=== PATIENT | female | born 1960 | race Caucasian/White ===

== ENCOUNTER 2019-03-03 21:56 | Emergency (ER) | payer BC ==
[2019-03-03] MEDS ORDERED: DIPH,PERTUS(ACELL)TETVAC-LF 0.5 ML VIAL IM ONE (22:09)
[2019-03-03] MEDS ORDERED: LIDOCAINE 1% INJ 10MG/ML (20 ML MDV) SQ ONE (22:09)
[2019-03-03 22:35] VITALS: BP 133/73; PULSE 73; RESP 16; TEMP 98.2
[2019-03-03] MEDS ORDERED: CEPHALEXIN 500MG STARTER PACK 4 CAP BTL PO STA (22:53)
[2019-03-03] MEDS ORDERED: LEVOFLOXACIN 750 MG TAB PO STA (22:55)
--- NOTE | 2019-03-03 22:56 | ED ---
Wound/Laceration HPI - General Chief Complaint: Wound/Laceration Stated Complaint: Fish hook in finger Time Seen by Provider: 03/03/19 22:09 Source: patient Mode of arrival: ambulatory Limitations: no limitations - History of Present Illness Initial Comments: 59-year-old female patient presents to the emergency department today for evaluation of fishhook injury to the right index finger. Patient states that it just prior to arrival she was fishing when she accidentally got stuck in her hand. Patient did try to remove it however was unsuccessful. She denies any significant pain. She is unsure when her last tetanus vaccine was administered. She denies taking anything for pain. She denies any other injuries or concerns. Patient denies any headache, neck pain, back pain, chest pain, shortness of breath, dizziness, weakness, abdominal pain, nausea, vomiting, or difficulties with bowel movements or urination. - Related Data Previous Rx's Medication Instructions Recorded Levofloxacin [Levaquin] 500 mg PO DAILY 3 Days #3 tab 03/03/19 Allergies Allergy/AdvReac Type Severity Reaction Status Date / Time No Known Allergies Allergy Verified 03/03/19 22:08 Review of Systems ROS Statement: Those systems with pertinent positive or pertinent negative responses have been documented in the HPI. ROS Other: All systems not noted in ROS Statement are negative. Past Medical History Past Medical History: Myocardial Infarction ([place]) History of Any Multi-Drug Resistant Organisms: None Reported Additional Past Surgical History / Comment(s): neck surgery Past Psychological History: No Psychological Hx Reported Smoking Status: Current every day smoker Past Alcohol Use History: None Reported Past Drug Use History: None Reported General Exam Limitations: no limitations General appearance: alert, in no apparent distress, other (This is a well- developed, well-nourished adult female patient in no acute distress. Vital signs upon presentation are temperature 97.9F, pulse 67, respirations 18, blood pressure 151/84, pulse ox 95% on room air.) Respiratory exam: Present: normal lung sounds bilaterally. Absent: respiratory distress, wheezes, rales, rhonchi, stridor Cardiovascular Exam: Present: regular rate, normal rhythm, normal heart sounds. Absent: systolic murmur, diastolic murmur, rubs, gallop, clicks Extremities exam: Present: full ROM, normal capillary refill, other (There is physician embedded into the palmar surface of the right distal index finger. No bleeding. Skin is pink, warm, dry. Cap refills less than 3 seconds. Radial pulses 2+ and equal bilaterally.). Absent: normal inspection, tenderness, pedal edema, joint swelling, calf tenderness Neurological exam: Present: alert, oriented X3, CN II-XII intact Psychiatric exam: Present: normal affect, normal mood Skin exam: Present: warm, dry, intact, normal color. Absent: rash Course Vital Signs 03/03/19 03/03/19 22:05 22:31 Temperature 97.9 F 98.2 F Pulse Rate 67 73 Respiratory 18 16 Rate Blood Pressure 151/84 133/73 O2 Sat by Pulse 95 96 Oximetry Procedures - Forgein Body Removal Soft Tissue Consent Obtained: verbal consent Site: hand (Right index finger) Anesthetic Used: lidocaine 1% Amount (mLs): 1 Foreign Body Suspected: Fish Hook Foreign Body Removed: yes Foreign Body Removal Technique: Other Patient Tolerated Procedure: well, no complications Medical Decision Making - Medical Decision Making 59-year-old female patient presents to the emergency department today for evaluation of facial injury to the right index finger. Physical examination did reveal a fishhook in the palmar aspect of the distal right index finger. This was removed easily by disengaging the van and retracting the hook. Patient tolerated procedure well. Area was cleansed. Patient will be started on levaquin for prophylaxis. She'll be discharged home to follow-up with her primary care physician for recheck in 1-2 days. Return parameters were discussed in detail. She verbalizes understanding and agrees with this plan. Disposition Clinical Impression: Fish hook injury of finger Disposition: HOME SELF-CARE Condition: Good Instructions (If sedation given, give patient instructions): Puncture Wound (ED) Additional Instructions: Keep area clean and dry. Complete antibiotic prescription in full. Follow-up with your primary care physician for recheck in 1-2 days. Return to the emergency department immediately for any new, worsening, or concerning symptoms. Prescriptions: Levofloxacin [Levaquin] 500 mg PO DAILY 3 Days #3 tab Is patient prescribed a controlled substance at d/c from ED?: No Referrals: Nonstaff,Physician [Primary Care Provider] - 1-2 days Time of Disposition: 22:55
== END 2019-03-03 23:10 | disposition home or self-care (01) ==
LOC: EC 21:56
DX: S69.91XA Unspecified injury of right wrist, hand and finger(s), initial encounter (principal); Z23 Encounter for immunization; I25.2 Old myocardial infarction; F17.200 Nicotine dependence, unspecified, uncomplicated; W45.8XXA Other foreign body or object entering through skin, initial encounter
CPT/HCPCS: 90715; 99283; 10120; 90471; J2001